=== PATIENT | male | born 1945 | race Caucasian/White ===

== ENCOUNTER → 2016-05-14 | Outpatient (CLI) | payer MEDICARE ==
[~2016-05-14] MED LIST: ASPI81CH CHEW; CHOLCRY PO; CYCL1TAB29 PO; FLAX100013 PO; FOSA70TA PO; GABA300C5 PO; HYDR50TA3 PO; LEVA500T PO; LISI-515 PO; METO50TA PO; VITA3000 PO; ZOCO80TA PO
[2016-05-14 12:41] LABS: APTT (PATIENT) 27.5 SEC (24.3-30.1); PROTHROMBIN TIME - PATIENT 10.7 SEC (9.8-11.6)
[2016-05-14 12:48] LABS: BLOOD, URINE NEG (NEG); COMMENT (UR) CULT NOT INDICATED; CULTURE IF INDICATED CULT NOT INDICATED; GLUCOSE,URINE NEG (NEG); KETONE, URINE NEG (NEG); MUCUS URINE FEW /lpf (OCC); NITRITE,URINE NEG (NEG); PH, URINE 6.5 (5.0-8.5); URINE COLOR YELLOW (YELLW/STRAW)
[2016-05-14 12:57] LABS: ALKALINE PHOSPHATASE 90 U/L (45-117); ALT (GPT) 22 U/L (12-78); ANION GAP 6 MEQ/L (5-15); AST (GOT) 17 U/L (15-37); BICARBONATE 30.1 MEQ/L (21.0-32.0); BLOOD UREA NITROGEN 24 MG/DL (7-18); CHLORIDE 102 MEQ/L (98-107); GLOMERULAR FILTRATION RATE 39 ML/MIN (>89); GLUCOSE,FASTING 87 MG/DL (74-99); POTASSIUM 4.5 MEQ/L (3.5-5.1); SODIUM (NA) 138 MEQ/L (136-145); TOTAL BILIRUBIN ADULT 2.1 MG/DL (0.2-1.0)
[2016-05-14 13:19] LABS: AUTOMATED NEUTROPHIL # 4.1 TH/MM3 (1.8-7.7); BASOPHIL % 0.5 % (0.0-2.0); EOSINOPHIL # 0.1 TH/MM3 (0-0.4); EOSINOPHIL % 2.2 % (0.0-4.0); HEMATOCRIT 44.2 % (39.0-51.0); HEMO FLAGS DIFF FINAL; LYMPH % 26.6 % (9.0-44.0); LYMPHOCYTE # 1.8 TH/MM3 (1.0-4.8); MEAN CELL VOLUME 87.5 FL (80.0-100.0); MEAN CORPUSCULAR HEMOGLOBIN 30.2 PG (27.0-34.0); MEAN CORPUSCULAR HGB CONC 34.5 % (32.0-36.0); MONO % 8.2 % (0.0-8.0); NEUT % 62.5 % (16.0-70.0); PLATELET COUNT 170 TH/MM3 (150-450); RED BLOOD COUNT 5.05 MIL/MM3 (4.50-5.90); RED CELL DISTRIBUTION WIDTH 13.7 % (11.6-17.2); WHITE BLOOD COUNT 6.6 TH/MM3 (4.0-11.0)
--- NOTE | 2016-05-14 14:31 | RADRPT ---
EXAM DATE/TIME: 05/14/2016 13:10 [place] COMPARISON: SPINE LUMBAR LTD (AP & LAT), June 19, 2015, 8:45. INDICATIONS : Evaluate for penumonia, pneumothorax, or communicable disease. Pre op for neruostimulator. MEDICAL HISTORY : Cardiovascular disease. Hypertension. Renal insufficiency. SURGICAL HISTORY : CABG. Lumbar surgery ENCOUNTER: Initial ACUITY: 1 day PAIN SCORE: 0/10 LOCATION: chest FINDINGS: The patient is post median sternotomy. The heart is normal in size. The lungs are clear. The visualiz ed bony structures demonstrate mild degenerative changes but are otherwise intact. CONCLUSION: 1. No acute abnormality identified. Ck Meredith MD on May 14, 2016 at 14:29 Board Certified Radiologist. This report was verified electronically.
--- NOTE | 2016-05-16 00:02 | EKG ---
Date Performed: 05/14/2016 Time Performed: 12:16:34 PTAGE: 70 years EKG: Sinus rhythm WITH FIRST DEGREE AV BLOCK PROBABLE INFERIOR MYOCARDIAL INFARCTION, PROBABLY OLD ABNORMAL ECG PREVIOUS TRACING : 06/17/2015 13.07 Compared to prior tracing no significant change DOCTOR: Niko Emanuel Interpretating Date/Time 05/16/2016 00:01:43
== END ==
LOC: CPRE 11:50
PROVIDERS: ATTEND Neurological Surgery
DX: Z01.810 Encounter for preprocedural cardiovascular examination (principal); Z01.811 Encounter for preprocedural respiratory examination; Z01.812 Encounter for preprocedural laboratory examination
CPT/HCPCS: 36415; 71020; 80053; 81001; 85025; 85610; 85730; 86850; 86900; 86901; 93005

== ENCOUNTER → 2016-05-16 | Day surgery (SDC) | payer MEDICARE ==
[~2016-05-16] VITALS: Ht 175.3 cm; Wt 112.6 kg
[~2016-05-16] MED LIST changes: +*LABETALOL HCL 100 MG/20 ML VIAL PERIprocedural Use ONLY ONE; +*diphenhydrAMINE HCL 50 MG/ML VIAL PERIprocedural Use ONLY ONE; +BUPIVACAINE HCL PF 0.5% 30 ML VIAL ONE; -CHOLCRY PO; +DEXAMETHASONE SOD PHOS 4 MG/ML VIAL ONE; +DO NOT ADM ANY ANTICOAGULANT DRUGS XX PRN; +FAMOTIDINE 20 MG/2 ML VIAL ONE; +GELFOAM SIZE 100 ONE; +INSULIN HUMAN REGULAR 1,000 UNITS/10 ML VIAL SQ PRN; +LACTATED RINGER'S 1000 ML INJ 1,000 ML IV ONE; +LACTATED RINGER'S 1000 ML IV SCH; +LIDOCAINE 1%/EPINEPHrine 1:100,000 SOLN 30 ML VIAL ONE; +METOPROLOL TARTRATE 25 MG TAB PO PRN; +MIDAZOLAM HCL 2 MG/2 ML VIAL ONE; +NEOSTIGMINE 3 MG/3 ML SYR IV ONE; +ONDANSETRON HCL 4 MG/2 ML VIAL IV PUSH ONE; +ONDANSETRON HCL 4 MG/2 ML VIAL IV PUSH PRN; +PHENYLEPH/NS 1000 MCG/10 ML SYR IV ONE; +PROPOFOL 200 MG/20 ML AMP IV ONE; +SODIUM CHLORID 0.9% 500 ML IV SCH; +THROMBIN (TOPICAL) 5,000 UNIT VIAL ONE; +ceFAZolin 2 GM PREMIX 50 ML IV SCH; +ePHEDrine/NS 25 MG/5 ML SYR IV ONE; +fentaNYL CITRATE 250 MCG/5 ML AMP ONE; +hydrALAZINE HCL 20 MG/ML VIAL IV PRN; +hydrALAZINE HCL 20 MG/ML VIAL ONE; +traMADol HCL 50 MG TAB PO PRN
[2016-05-16 09:22] VITALS: BP 144/91; PULSE 62; RESP 18; TEMP 97.3; O2SAT 99
--- NOTE | 2016-05-16 14:14 | RADRPT ---
EXAM DATE/TIME: 05/16/2016 12:02 COMPARISON: No previous studies available for comparison. INDICATIONS : T8-9 Stimulator placement. MEDICAL HISTORY : Hypertension. Myocardial infarction. SURGICAL HISTORY : CABG. Carotid stent. Fusion, lumbar. ENCOUNTER: Initial ACUITY: 1 day PAIN SCORE: Non-responsive. LOCATION: Thoracic spine. FINDINGS: Epidural stimulator is present in the mid thoracic spine. This is in the midline. CONCLUSION: 1. Postsurgical changes as above. Tanner Posada MD on May 16, 2016 at 14:13 Board Certified Radiologist. This report was verified electronically.
[2016-05-16 16:08] VITALS: BP 145/84; PULSE 76; RESP 18; TEMP 97.2; O2SAT 98
--- NOTE | 2016-05-18 14:51 | MP ---
cc: FROYLAN SUTTON MD DATE OF SURGERY: 05/17/2016. PREOPERATIVE DIAGNOSIS: Chronic pain syndrome. POSTOPERATIVE DIAGNOSIS: Chronic pain syndrome. OPERATIVE PROCEDURE PERFORMED: Implant of a Penta lead at T8 and Proclaim internal pulse generator from [employer]. SURGEON: Froylan Sutton MD. ENGINEERING SURVEYOR: Aurelio. ANESTHESIA: General. INDICATIONS FOR THE PROCEDURE: The patient is a 70-year-old gentleman who presented with intractable back pain preventing exercising and affecting his quality of life. He underwent a trial after failure of medical therapy with greater than 85% relief of pain with burst stimulation at T8. He presents now for implantation of a assembler surgical garment for treatment of his chronic pain with burst stimulation at T8. DESCRIPTION OF THE PROCEDURE IN DETAIL: The patient was brought to the operating room and placed supine on the OR cart. Anesthesia was induced and the patient intubated orally. He was then turned prone onto a Mohit frame. His back was prepped with Betadine followed by a ChloraPrep and this was allowed to dry. The IPG incision was also prepped and planned at the posterior axillary line on the right side. The skin incisions were infiltrated with 1% lidocaine with epinephrine in a 1:1 mixture with 0.5% Marcaine. The back incision was planned at T9. The skin was first opened at the battery site. The skin was opened with a 15 blade and carried in a subcutaneous dissection was carried out approximately 1 cm under the surface in the subcutaneous fat. The incision measured 6 cm and approximated the size of the internal pulse generator. After irrigation, this wound was dried and hemostasis obtained. The back incision was then opened. The skin was opened with a 15 blade and carried down with the monopolar cautery to the dorsal fascia. A subperiosteal dissection was carried out at T9. The lead was placed in the epidural space. The Penta lead was left in the epidural space and secured with a 2-0 silk suture to the T9-10 interspinous process. Hemostasis was obtained with bone wax and FloSeal. The impedances were improved by the use of the Tisseel in the epidural space. All impedances were in their normal range except at contact #2 where it was even lower at less than 2 Ohms. The wounds were closed at the dermis with a 2-0 Vicryl and at the skin edges with 4-0 Monocryl. Dermabond was used on the battery site and Steri-Strips were used on the spinal site at the skin level. They were then both dressed with Telfa and Medipore tape. The patient was then extubated and brought back to the recovery room in stable condition. ESTIMATED BLOOD LOSS: Estimated at 50 mL. MD AIDEE Gaona/DINAH /6:05 PM /2:41 PM [facility]
== END | disposition home or self-care (01) ==
LOC: HSDC 08:38
PROVIDERS: ATTEND Neurological Surgery
DX: M51.16 Intervertebral disc disorders with radiculopathy, lumbar region (principal); M51.36 Other intervertebral disc degeneration, lumbar region; M46.96 Unspecified inflammatory spondylopathy, lumbar region; M96.1 Postlaminectomy syndrome, not elsewhere classified; G89.4 Chronic pain syndrome; M54.5 Low back pain; M79.605 Pain in left leg; M79.604 Pain in right leg; Z98.1 Arthrodesis status
CPT/HCPCS: 00300; 63655; 63685; 72020; 76000; C1767; C1778; J0690; J1100; J1200; J2250; J2370; J2405; J2710; J3010; J7120; J0360